=== PATIENT | female | born 1995 | race Caucasian/White ===

== ENCOUNTER 2019-08-28 15:27 | Emergency (ER) | payer OTHER ==
[~2019-08-28] VITALS: Ht 157.5 cm; Wt 52.6 kg
--- NOTE | 2019-08-28 15:53 | NUR ---
PT IS IN ROOM #2B. DR ATWOOD EVALUATED THE PT.
[2019-08-28] MEDS ORDERED: LORAZEPAM 2 MG/1 ML VIAL IV ONE (16:15)
[2019-08-28] MEDS ORDERED: LORAZEPAM 2 MG/1 ML VIAL ONE (16:33)
[2019-08-28] MEDS ORDERED: LORAZEPAM 2 MG/1 ML VIAL IM ONE (16:45)
--- NOTE | 2019-08-28 17:40 | NUR ---
Patient discharged to home in stable conditon. Written and verbal after care instructions given. Patient verbalizes understanding of instructions. Pt ambulated out of ER with steady gait. Pt stated she will call her detox center to come pick her up.
[2019-08-28 17:57] VITALS: BP 110/67
== END 2019-08-28 17:58 | disposition home or self-care (01) ==
LOC: ER 15:27
DX: R56.9 Unspecified convulsions (principal); F11.10 Opioid abuse, uncomplicated; Z88.5 Allergy status to narcotic agent; Z88.8 Allergy status to other drugs, medicaments and biological substances; Z79.899 Other long term (current) drug therapy
CPT/HCPCS: 96372; 99283; J2060; A4663

== ENCOUNTER 2019-09-18 15:02 | Inpatient (IN) | payer OTHER ==
[~2019-09-18] VITALS: Ht 167.6 cm; Wt 56.7 kg
[2019-09-18 15:53] LABS: BASOPHILS % (AUTO) 0.4 % (0.0-2.0); EOSINOPHILS # (AUTO) 0.1 K/uL (0.0-0.7); EOSINOPHILS % (AUTO) 1.9 % (0.0-7.0); HEMATOCRIT 33.5 % (31.2-41.9); HEMOGLOBIN 11.2 g/dL (10.9-14.3); LYMPHOCYTES # (AUTO) 2.2 K/uL (20.0-40.0); MEAN CORPUSCULAR HEMOGLOBIN 30.4 uug (24.7-32.8); MEAN CORPUSCULAR HGB CONC 33 g/dL (32.3-35.6); MEAN CORPUSCULAR VOLUME 91.1 fL (75.5-95.3); MONOCYTES # (AUTO) 0.4 K/uL (2.0-10.0); MONOCYTES % (AUTO) 6.7 % (0.0-11.0); NEUTROPHILS # (AUTO) 3.2 K/uL (1.8-8.9); PLATELET COUNT (AUTO) 278 K/uL (179-408); RED BLOOD CELL COUNT(AUTO) 3.68 MIL/uL (3.63-4.92); WHITE BLOOD COUNT (AUTO) 5.9 K/uL (3.8-11.8)
[2019-09-18 15:54] LABS: CARBON DIOXIDE 26 mmol/L (21-32); CHLORIDE 107 mmol/L (98-107); CREATININE 1.2 mg/dL (0.6-1.3); GLUCOSE 179 mg/dL (74-106); POTASSIUM 3.4 mmol/L (3.5-5.1); UREA NITROGEN, BLOOD 13 mg/dL (7-18)
[2019-09-18 15:57] LABS: *BILIRUBIN,URIN NEGATIVE (NEGATIVE); *BLOOD, URINE NEGATIVE (NEGATIVE); *COLOR,URINE YELLOW (YELLOW); *KETONES,URINE NEGATIVE (NEGATIVE); *UROBILINOGEN,URINE 0.2 E.U./dl (NORMAL); LEUKOCYTE ESTERASE ,URINE 1+ (NEGATIVE); NITRITE, URINE NEGATIVE (NEGATIVE); UGLUCOSE NEGATIVE (NEGATIVE)
[2019-09-18 16:00] LABS: ALANINE AMINOTRANSFERASE 12 U/L (14-59); ALKALINE PHOSPHATASE 68 U/L (50-136); ASPARTATE AMINOTRANSFERASE 11 U/L (15-37); BILIRUBIN,TOTAL 0.4 mg/dL (0.2-1.0); TOTAL PROTEIN, SERUM 7.2 g/dL (6.4-8.2)
[2019-09-18 16:06] LABS: *CLARITY,URINE SLIGHTLY HAZY (CLEAR)
[2019-09-18 16:10] LABS: SQUAMOUS EPITHELIAL CELL,UR MODERATE /HPF (NONE SEEN)
[2019-09-18 16:11] LABS: MUCUS,URINE FEW /LPF (0-FEW); TRICHOMONAS,URINE FEW /HPF (NONE SEEN)
[2019-09-18 16:12] LABS: BILIRUBIN,DIRECT < 0.1 mg/dL (0.0-0.2)
[2019-09-18] MEDS ORDERED: LORAZEPAM 2 MG/1 ML VIAL IV ONE (16:30)
[2019-09-18] MEDS ORDERED: LORAZEPAM 2 MG/1 ML VIAL ONE (16:34)
--- NOTE | 2019-09-18 17:45 | NUR ---
Assisted ERMD Dr. Brandon with Lumbar Puncture, sterile techniques observed and maintained
[2019-09-18 18:04] LABS: CSF PROTEIN 34 mg/dL (15-45)
[2019-09-18] MEDS ORDERED: LORAZEPAM 0.5 MG TABLET PO ONE (18:15)
[2019-09-18] MEDS ORDERED: LORAZEPAM 1 MG TABLET ONE (18:16)
--- NOTE | 2019-09-18 18:21 | NUR ---
Report given to Sari MG
[2019-09-18 18:24] LABS: CSF GLUCOSE 76 mg/dL (40-70)
[2019-09-18] MEDS ORDERED: CEFTRIAXONE 2 G in IV DEXTROSE 5% 100 ML IV ONE (18:30)
[2019-09-18] MEDS ORDERED: VANCOMYCIN IV 1,000 MG in IV DEXTROSE 5% 250 ML IV ONE (18:30)
[2019-09-18] MEDS ORDERED: ZOLPIDEM 5 MG TABLET PO PRN (20:15)
[2019-09-18] MEDS ORDERED: MAGNESIUM HYDROXIDE 30 ML LIQUID UDC PO PRN (20:15)
[2019-09-18] MEDS ORDERED: ONDANSETRON 4 MG/2 ML VIAL IV PRN (20:15)
[2019-09-18 20:30] VITALS: BP 102/53
[2019-09-18] MEDS ORDERED: PHENOBARBITAL 32.4 MG TABLET PO SCH (20:30)
[2019-09-18] MEDS ORDERED: GABAPENTIN 300 MG CAPSULE PO SCH (20:30)
[2019-09-18] MEDS ORDERED: diphenhydrAMINE 25 MG CAP PO PRN (20:30)
--- NOTE | 2019-09-18 20:43 | NUR ---
PHARMACY CLINICAL NOTES: (VANCOMYCIN DOSING) S: Patient is a 24-year-old female history of seizure disorder, IV drug use, opiate dependency, currently in rehab x1 month brought in by EMS from rehab facility for breakthrough seizure and fever. patient reportedly with fever ongoing times 4-5 days. Patient noted to have fever temp of 104 today and reports headache. MD is treating empirically with Vanco and Rocephine O: BUN/SCR 13/1.2, WBC 5.9 , T 98.5, DOSING WT 57 KG A/P: PT is currently getting a Vancomycin 1000 mg (ordered in ER)(dose #1). Will dose vanco as 1 gm IVPB q16h (starting 16 hr post current dose) . Estimated peak of 40 and trough of 17. Plan to order Trough prior to 4th dose of Vanco. Will continue with monitoring renal fxn and levels and adjust the dose as necessary.
[2019-09-18] MEDS: GABAPENTIN 400 MG CAPSULE PO SCH (21:09)
[2019-09-18] MEDS: FLUVOXAMINE MALEATE 50 MG TABLET PO SCH (21:09)
[2019-09-18] MEDS: IV NS 1000 ML 1,000 ML IV PRN (21:10)
[2019-09-18] MEDS: LAMOTRIGINE 100 MG TABLET PO SCH (21:10)
[2019-09-18] MEDS: LEVETIRACETAM 500 MG TABLET PO SCH (21:10)
[2019-09-18] MEDS: ACETAMINOPHEN 325 MG TABLET PO PRN (21:15)
[2019-09-19 05:01] VITALS: BP 94/56
[2019-09-19] MEDS: ACETAMINOPHEN 325 MG TABLET PO PRN ×2 (05:28→16:18)
[2019-09-19 06:22] LABS: BASOPHILS % (AUTO) 0.5 % (0.0-2.0); EOSINOPHILS # (AUTO) 0.2 K/uL (0.0-0.7); EOSINOPHILS % (AUTO) 3.2 % (0.0-7.0); HEMATOCRIT 30.5 % (31.2-41.9); LYMPHOCYTES # (AUTO) 2.2 K/uL (20.0-40.0); LYMPHOCYTES % (AUTO) 39.7 % (20.5-51.5); MEAN CORPUSCULAR HEMOGLOBIN 30.6 uug (24.7-32.8); MEAN CORPUSCULAR HGB CONC 33 g/dL (32.3-35.6); MEAN CORPUSCULAR VOLUME 93.6 fL (75.5-95.3); MONOCYTES # (AUTO) 0.4 K/uL (2.0-10.0); MONOCYTES % (AUTO) 7.3 % (0.0-11.0); NEUTROPHILS # (AUTO) 2.7 K/uL (1.8-8.9); NEUTROPHILS % (AUTO) 49.3 % (38.5-71.5); PLATELET COUNT (AUTO) 235 K/uL (179-408); RED BLOOD CELL COUNT(AUTO) 3.26 MIL/uL (3.63-4.92); WHITE BLOOD COUNT (AUTO) 5.4 K/uL (3.8-11.8)
[2019-09-19 06:45] LABS: CREATININE 0.9 mg/dL (0.6-1.3); MAGNESIUM 1.7 mg/dL (1.8-2.4); PHOSPHOROUS 3.4 mg/dL (2.5-4.9); POTASSIUM 3.8 mmol/L (3.5-5.1)
--- NOTE | 2019-09-19 07:25 | NUR ---
RECEIVED PATIENT AWAKE ALERT AND ORIENTED NO SEIZURE ACTIVITIES AT THIS TIME DENIES PAIN OR DISCOMFORTS REMAIN ON IVF ORDERED WITH NO S/S OF INFILTERATION ON SITE.MADE COMFORTABLE CALL LIGHTS AND PERSONAL BELONGINGS ARE WITHIN EASY REACH AT THIS TIME WILL CONTINUE TO OBSERVE.
[2019-09-19] MEDS: LORAZEPAM 1 MG TABLET PO PRN (08:33)
[2019-09-19] MEDS: FLUVOXAMINE MALEATE 50 MG TABLET PO SCH ×2 (08:33→17:41)
[2019-09-19] MEDS: LAMOTRIGINE 100 MG TABLET PO SCH ×2 (08:35→17:41)
[2019-09-19] MEDS: GABAPENTIN 400 MG CAPSULE PO SCH ×2 (08:35→20:11)
[2019-09-19] MEDS: LEVETIRACETAM 500 MG TABLET PO SCH ×2 (08:35→20:11)
[2019-09-19] MEDS ORDERED: GABAPENTIN 300 MG CAPSULE PO SCH (09:00)
--- NOTE | 2019-09-19 09:15 | NUR ---
PHARMACY CLINICAL NOTES: (VANCOMYCIN DOSING) S: To continue vanco dosing on this 24 yo female for fever of unknown origin (history of IV drug use). O: BUN/SCR 11/0.9, WBC 5.4 , T 98.3 wt 57 ht 167 cm A/P: Since srcr has decreased, will change dose to vanco as 1 gm IVPB q14h for estimated trough of 15 mcg/ml . 2nd dose today at 1100. Plan to order Trough prior to 4th dose of Vanco (not yet ordered). Will continue with monitoring renal fxn and levels and adjust the dose as necessary. Will follow
[2019-09-19] MEDS: VANCOMYCIN IV 1,000 MG in IV DEXTROSE 5% 250 ML IV SCH (11:25)
[2019-09-19 11:47] VITALS: BP 98/46
[2019-09-19] MEDS ORDERED: MAGNESIUM OXIDE 400 MG TABLET PO ONE (12:00)
--- NOTE | 2019-09-19 12:33 | NUR ---
MAGNESIUM LEVEL IS 1.7 REVIEWED BY IRAIS ORTIZ DNP WITH NEW REPLACEMENT ORDER AND NOTED.
[2019-09-19] MEDS: IV NS 1000 ML 1,000 ML IV PRN (14:33)
[2019-09-19 16:00] VITALS: BP 106/52
--- NOTE | 2019-09-19 16:18 | NUR ---
RESTING C/O HEADACHE MEDICATED WITH BTYLENOL ORDERED MADE COMFORTABLE
--- NOTE | 2019-09-19 18:36 | NUR ---
RESTING IN ROOM AT THIS TIME WITH NO C/O AT THIS TIME
[2019-09-19 20:05] VITALS: BP 104/54
[2019-09-19] MEDS ORDERED: CEFTRIAXONE 1 G in IV DEXTROSE 5% 50 ML IV SCH (21:00)
[2019-09-20] MEDS: VANCOMYCIN IV 1,000 MG in IV DEXTROSE 5% 250 ML IV SCH (00:43)
[2019-09-20 04:56] VITALS: BP 95/55
[2019-09-20 06:35] LABS: CREATININE 0.9 mg/dL (0.6-1.3); MAGNESIUM 1.8 mg/dL (1.8-2.4); POTASSIUM 4.5 mmol/L (3.5-5.1)
[2019-09-20] MEDS: GABAPENTIN 400 MG CAPSULE PO SCH (08:24)
[2019-09-20] MEDS: LEVETIRACETAM 500 MG TABLET PO SCH (08:25)
[2019-09-20] MEDS: FLUVOXAMINE MALEATE 50 MG TABLET PO SCH (08:27)
[2019-09-20] MEDS: LAMOTRIGINE 100 MG TABLET PO SCH (08:27)
[2019-09-20] MEDS: LORAZEPAM 1 MG TABLET PO PRN (08:29)
[2019-09-20] MEDS: IV NS 1000 ML 1,000 ML IV PRN (08:30)
--- NOTE | 2019-09-20 09:00 | NUR ---
AWAKE ALERT AND ORIENTED RESTING IN BED WITH NO SEIZURE ACTIVITIES COMPLIANT WITH MEDICATIONS AND CARE CALL LIGHTS AND PERSONAL BELONGINGS ARE PLACED WITHIN EASY REACH WILL CONTINUE TO OBSERVE.
--- NOTE | 2019-09-20 10:18 | NUR ---
PHARMACY CLINICAL NOTES: (VANCOMYCIN DOSING) S: To continue vanco dosing on this 24 yo female for fever of unknown origin (history of IV drug use). O: BUN/SCR 11/0.9 (), WBC 5.4 (), T 98.1 wt 57 ht 167 cm Trough pending today at 1430 A/P: Will continue vanco 1 gm IVPB q14h for estimated trough of 15 mcg/ml . 3rd dose was earlier today at 0100. Trough ordered now pending today at 1430 before 4th scheduled dose. Will check when available and adjust as needed. Will follow
--- NOTE | 2019-09-20 11:37 | NUR ---
PATIENT SEEN AND EXAMINED BY IRAIS ORTIZ DNP WITH ORDERS TO DISCHARGE PATIENT BACK TO [facility] TODAY PATIENT AWARE AND STATED SOMEONE FROM THE REHAB WILL BE HERE TO TAKE HER BACK WILL PREP HER FOR DISCHARGE.
--- NOTE | 2019-09-20 13:45 | NUR ---
PATIENT DISCHARGED PICKED UP BY [facility] CAPTAIN IS SATISFACTORY CONDITION NO SEIZURE ACTIVITIES INSTRUCTED TO CONTINUE TAKING HER ANTIBIOTICS AND HER OTHER ROUTINE MEDICATIONS AND TO CALL FOR A FOLLOW UP APPOINTMENT WITH HER PRIMARY DOCTOR WITHIN THE NEXT ONE TO TWO WEEKS AND SHE EXPRESSED UNDERSTANDING.
== END 2019-09-20 13:45 | disposition other institution (70) | DRG 101 ==
LOC: ER 15:08 → MEDSURG3 18:49
PROVIDERS: ADMIT Nurse Practitioner Acute Care; ATTEND Nurse Practitioner Acute Care
DX: G40.909 Epilepsy, unspecified, not intractable, without status epilepticus (principal); N39.0 Urinary tract infection, site not specified; F11.20 Opioid dependence, uncomplicated; F45.8 Other somatoform disorders; R50.9 Fever, unspecified; Z79.899 Other long term (current) drug therapy; Z88.6 Allergy status to analgesic agent; Z91.018 Allergy to other foods
CPT/HCPCS: 36415; 70030-TC; 70450; 71045; 83735; 84100; 84157; 85025; 85730; 87040; 87086; 87205; 87400; 89051; 93005; 93307; A4663; G0378; J0696; J2060; J3370; J7030; J7040; J7060

== ENCOUNTER 2019-09-24 10:24 | Emergency (ER) | payer OTHER ==
[~2019-09-24] VITALS: Ht 157.5 cm; Wt 54.4 kg
[2019-09-24] MEDS ORDERED: ONDANSETRON 4 MG/2 ML VIAL IV ONE (10:45)
[2019-09-24] MEDS ORDERED: IV NORMAL SALINE 1000 ML BAG IV ONE (10:45)
[2019-09-24] MEDS ORDERED: HYDROMORPHONE 1 MG/1 ML DISP.SYRIN IV ONE (10:45)
[2019-09-24] MEDS ORDERED: HYDROMORPHONE 2 MG/1 ML DISP.SYRIN ONE (10:50)
[2019-09-24] MEDS ORDERED: ONDANSETRON 4 MG/2 ML VIAL ONE (10:50)
--- NOTE | 2019-09-24 11:22 | NUR ---
Spoke to Alena at facility regarding patient update
--- NOTE | 2019-09-24 12:44 | NUR ---
Called [place] caregiver, awaiting call back.
--- NOTE | 2019-09-24 13:00 | NUR ---
IV removed. Catheter intact and site benign. Pressure and 4x4 gauze applied to site. No bleeding noted. Patient discharged to home in stable conditon. Written and verbal after care instructions given. Patient verbalizes understanding of instructions. Patient ambulated with stable gait. Patient taken home by caregiverOMER
[2019-09-24 13:17] VITALS: BP 129/68
== END 2019-09-24 13:17 | disposition home or self-care (01) ==
LOC: ER 10:24
DX: R51 Headache (principal); R11.2 Nausea with vomiting, unspecified; Z79.899 Other long term (current) drug therapy
CPT/HCPCS: 96361; 96374; 96375; 99283; J1170; J2405; A4663; J7030